=== PATIENT | female | born 1935 | race Caucasian/White ===

== ENCOUNTER → 2016-06-23 | Outpatient (CLI) | payer MEDICARE, BC ==
--- NOTE | 2016-06-23 13:39 | REP ---
LEFT HAND, FOUR VIEWS: HISTORY: Trauma. There is no acute fracture or dislocation. There is narrowing of the first carpometacarpal joint space. The remaining joint spaces are normal in appearance. IMPRESSION: There is no acute fracture or dislocation. Signed by Kong Alvarez MD 06/23/2016 01:41 P
== END ==
LOC: M WUC 12:06
PROVIDERS: ATTEND Family Medicine
DX: S69.92XA Unspecified injury of left wrist, hand and finger(s), initial encounter (principal); X58.XXXA Exposure to other specified factors, initial encounter; Y92.89 Other specified places as the place of occurrence of the external cause; Y93.89 Activity, other specified; Y99.8 Other external cause status

== ENCOUNTER → 2017-12-17 | Outpatient (REF) | payer MEDICARE, BC | LOC: M LAB REF 15:26 | DX: E83.52 Hypercalcemia (principal) ==

== ENCOUNTER → 2018-06-20 | Outpatient (REF) | payer MEDICARE, BC | LOC: M LAB REF 11:34 | PROVIDERS: ATTEND Family Medicine | DX: E83.52 Hypercalcemia (principal) ==

== ENCOUNTER → 2018-12-26 | Outpatient (CLI) | payer MEDICARE, BC ==
--- NOTE | 2018-12-26 15:18 | REP ---
WHOLE BODY RADIONUCLIDE BONE SCAN: HISTORY: Hypercalcemia. No comparison imaging. TECHNIQUE: 21.1 mCi of technetium 99m MDP is injected and standard whole body bone scan imaging was acquired. SCINTIGRAPHIC FINDINGS: There is a asymmetric osteoarthritic pattern of increased uptake in the acromioclavicular joints bilaterally. There are two linearly opposed foci of increased uptake in the right anterior rib cage involving rib numbers four and five consistent with fractures which are healing. There is mild osteoarthritic change in the medial compartment of each knee, left greater than right. 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 Some degenerative disc changes are noted in the thoracic spine. IMPRESSION: There is no evidence to suggest skeletal metastatic disease. Osteoarthritic changes. Healing anterior rib fractures on the right. Electronically Signed by Roger Clarke MD 12/26/2018 06:50 P
== END ==
LOC: M RAD 09:59
PROVIDERS: ATTEND Family Medicine
DX: S22.41XD Multiple fractures of ribs, right side, subsequent encounter for fracture with routine healing (principal); M51.34 Other intervertebral disc degeneration, thoracic region; M47.814 Spondylosis without myelopathy or radiculopathy, thoracic region; E83.52 Hypercalcemia
CPT/HCPCS: 78306; A9503

== ENCOUNTER → 2021-11-25 | Outpatient (REF) | payer MEDICARE, BC | LOC: M LAB REF 12:56 | PROVIDERS: ATTEND Family Medicine | DX: E83.52 Hypercalcemia (principal) ==

== ENCOUNTER → 2021-12-11 | Outpatient (CLI) | payer MEDICARE, BC | LOC: M WHC 09:20 | PROVIDERS: ATTEND Family Medicine | DX: R79.89 Other specified abnormal findings of blood chemistry (principal) ==

== ENCOUNTER → 2023-02-03 | Outpatient (REF) | payer MEDICARE, BC | LOC: M LAB REF 16:18 | PROVIDERS: ATTEND Family Medicine | DX: I50.9 Heart failure, unspecified (principal) ==

== ENCOUNTER 2023-04-11 21:42 | Emergency (ER) | payer MEDICARE, BC ==
[~2023-04-11] VITALS: Ht 147.3 cm; Wt 46.4 kg
[2023-04-11 21:53] VITALS: BP 133/63; TEMP 97.5; O2SAT 95
[2023-04-11] MEDS ORDERED: ASPI81CH33 PO (22:03)
[2023-04-11] MEDS ORDERED: NITR0.2D5 TD (22:05)
[2023-04-11] MEDS ORDERED: CARD40TA PO (22:09)
[2023-04-11] MEDS ORDERED: ROSU20TA61 PO (22:09)
[2023-04-11] MEDS ORDERED: SERT25TA85 PO (22:09)
[2023-04-11] MEDS ORDERED: POTA8CAP10 PO (22:09)
[2023-04-11] MEDS ORDERED: FURO20TA2 PO (22:09)
[2023-04-11] MEDS: BOOSTRIX VACCINE (TETANUS/DIPHTH/ACEL. PERTUSSIS) 0.5ML SYR IM.IMMUN ONE (23:29)
== END 2023-04-11 23:58 | disposition home or self-care (01) ==
LOC: EDBD 21:42 → M ED 21:42
DX: S01.01XA Laceration without foreign body of scalp, initial encounter (principal); W19.XXXA Unspecified fall, initial encounter; Y92.009 Unspecified place in unspecified non-institutional (private) residence as the place of occurrence of the external cause; Y93.89 Activity, other specified; Y99.9 Unspecified external cause status; Z23 Encounter for immunization; Z79.82 Long term (current) use of aspirin; Z79.899 Other long term (current) drug therapy

== ENCOUNTER 2023-06-03 18:36 | Inpatient (IN) | payer MEDICARE, BC ==
[~2023-06-03] VITALS: Ht 144.8 cm; Wt 46.2 kg
[~2023-06-03 18:36] MED LIST: ASPI81CH33 PO; CARD40TA PO; FURO20TA2 PO; NITR0.2D5 TOP; POTA8CAP10 PO; ROSU20TA61 PO; SERT25TA85 PO
[2023-06-03 20:03] LABS: VENOUS HCO3 24.2 MMOL/L (23.0-27.0); VENOUS O2 SATURATION 75.2 % (60.0-80.0); VENOUS PARTIAL PRESSURE CO2 41.9 mmHg (38.0-50.0); VENOUS PARTIAL PRESSURE O2 40.2 mmHg (30.0-50.0); VENOUS PH 7.379 UNITS (7.330-7.430); VENOUS STANDARD HCO3 23.1 MMOL/L; VENOUS TOTAL CO2 25.5 MMOL/L (24.0-28.0)
[2023-06-03 20:15] LABS: BASO % 0.2 % (0.0-1.0); HEMATOCRIT 41.9 % (36.0-47.0); HEMOGLOBIN 13.7 g/dl (12.0-15.5); LYMPH # 2.4 10^3/uL (1.5-5.0); LYMPH % 25.6 % (24.0-44.0); MEAN CORPUSCULAR HEMOGLOBIN 29.5 pg (27.0-33.0); MEAN CORPUSCULAR HGB CONC 32.7 g/dl (32.0-36.5); MEAN CORPUSCULAR VOLUME 90.1 fl (80.0-96.0); MONO % 10.8 % (2.0-8.0); NEUTROPHILS # 5.9 10^3/uL (1.5-8.5); NEUTROPHILS % 63.1 % (36.0-66.0); PLATELET COUNT, AUTOMATED 142 10^3/uL (150-450); RED BLOOD COUNT 4.65 10^6/uL (4.00-5.40); WHITE BLOOD COUNT 9.4 10^3/uL (4.0-10.0)
[2023-06-03 20:35] LABS: CK-MB VALUE MASS < 1.0 NG/ML (<3.6)
[2023-06-03 20:37] LABS: ALBUMIN 4.1 G/DL (3.2-5.2); ALKALINE PHOSPHATASE 125 U/L (46-116); ALT/SGPT 579 U/L (7.0-40); AST/SGOT 658 U/L (<34); BILIRUBIN,DIRECT 0.3 MG/DL (<0.4); BILIRUBIN,TOTAL 0.9 MG/DL (0.3-1.2); BLOOD UREA NITROGEN 15 MG/DL (9-23); CALCIUM LEVEL 9.4 MG/DL (8.3-10.6); CARBON DIOXIDE LEVEL 27 MMOL/L (20-31); CHLORIDE LEVEL 104 MMOL/L (98-107); CPK CREATINE PHOSPHOKINASE 86 U/L (34-145); CREATININE FOR GFR 0.83 MG/DL (0.55-1.30); GLOMERULAR FILTRATION RATE > 60.0 (>32); GLUCOSE, FASTING 86 MG/DL (74-106); MB/CK RELATIVE INDEX 1.16 (< OR =4); POTASSIUM SERUM 4.6 MMOL/L (3.5-5.1); SODIUM LEVEL 139 MMOL/L (136-145)
[2023-06-03] MEDS ORDERED: ISOVUE-370 76% 100ML VIAL As Ordered ONE (21:21)
[2023-06-03 21:50] LABS: CK-MB VALUE MASS < 1.0 NG/ML (<3.6)
[2023-06-03 21:54] LABS: CPK CREATINE PHOSPHOKINASE 79 U/L (34-145); MB/CK RELATIVE INDEX 1.26 (< OR =4)
[2023-06-03] MEDS: methylPREDNISolone 125MG 2ML VIAL IV ONE (22:57)
[2023-06-03] MEDS: IPRATROPIUM 0.5MG/ALBUTEROL 2.5MG INH SOL UD 3ML (DUONEB) NEB ONE (23:03)
[2023-06-04] MEDS ORDERED: MAALOX 30 ML SUSP *UDC PO PRN (01:45)
[2023-06-04] MEDS ORDERED: ACETAMINOPHEN TAB 650MG DOSE (2X325MG) PO PRN (01:45)
[2023-06-04] MEDS ORDERED: MOM 30ML SUSPENSION UDC PO PRN (01:45)
[2023-06-04] MEDS: IPRATROPIUM 0.5MG/ALBUTEROL 2.5MG INH SOL UD 3ML (DUONEB) NEB SCH (02:08)
[2023-06-04 03:23] LABS: MAGNESIUM LEVEL 1.7 MG/DL (1.8-2.4)
[2023-06-04 07:43] LABS: BASO % 0.2 % (0.0-1.0); HEMATOCRIT 37.9 % (36.0-47.0); HEMOGLOBIN 12.2 g/dl (12.0-15.5); LYMPH # 0.7 10^3/uL (1.5-5.0); LYMPH % 10.8 % (24.0-44.0); MEAN CORPUSCULAR HEMOGLOBIN 29.3 pg (27.0-33.0); MEAN CORPUSCULAR HGB CONC 32.2 g/dl (32.0-36.5); MEAN CORPUSCULAR VOLUME 91.1 fl (80.0-96.0); MONO # 0.1 10^3/uL (0.0-0.8); MONO % 1.8 % (2.0-8.0); NEUTROPHILS # 5.3 10^3/uL (1.5-8.5); NEUTROPHILS % 86.5 % (36.0-66.0); PLATELET COUNT, AUTOMATED 117 10^3/uL (150-450); RED BLOOD COUNT 4.16 10^6/uL (4.00-5.40); WHITE BLOOD COUNT 6.1 10^3/uL (4.0-10.0)
[2023-06-04] MEDS ORDERED: SYMBICORT 160/4.5MCG INHALER 6GM INH SCH (08:00)
[2023-06-04] MEDS ORDERED: AMIO200T49 PO (08:20)
[2023-06-04] MEDS ORDERED: ROSU10TA6 PO (08:20)
[2023-06-04] MEDS ORDERED: MULTTAB61 PO (08:20)
[2023-06-04] MEDS ORDERED: ASPI81TA26 PO (08:20)
[2023-06-04] MEDS ORDERED: FURO40TA2 PO (08:20)
[2023-06-04] MEDS ORDERED: PRES10CA2 PO (08:20)
[2023-06-04] MEDS ORDERED: POTA10CA60 PO (08:20)
[2023-06-04] MEDS ORDERED: HOME MED LIST COMPLETE! XX SCH (08:25)
[2023-06-04] MEDS: PANTOPRAZOLE 40MG VIAL IV SCH (08:36)
[2023-06-04] MEDS: methylPREDNISolone 125MG 2ML VIAL IV SCH (08:36)
[2023-06-04] MEDS: MAG SULF 1GM/100ML (MAG RUN) 1 GM in IV 1 EA IV ONE (08:36)
[2023-06-04 08:45] LABS: HEPATITIS B CORE ANTIBODY IGM NEGATIVE (NEGATIVE); HEPATITIS C VIRUS ABY INDEX < 0.02 INDEX (<0.8)
[2023-06-04] MEDS ORDERED: ENOXAPARIN 40MG/0.4ML SYRINGE (J1650 PER 10MG) SC SCH (09:00)
[2023-06-04 09:12] LABS: ALBUMIN 3.3 G/DL (3.2-5.2); ALKALINE PHOSPHATASE 107 U/L (46-116); ALT/SGPT 885 U/L (7.0-40); AST/SGOT 1034 U/L (<34); BILIRUBIN,DIRECT 0.3 MG/DL (<0.4); BILIRUBIN,TOTAL 0.7 MG/DL (0.3-1.2); BLOOD UREA NITROGEN 18 MG/DL (9-23); CARBON DIOXIDE LEVEL 24 MMOL/L (20-31); CHLORIDE LEVEL 107 MMOL/L (98-107); CREATININE FOR GFR 0.86 MG/DL (0.55-1.30); GLOMERULAR FILTRATION RATE > 60.0 (>32); GLUCOSE, FASTING 149 MG/DL (74-106); POTASSIUM SERUM 3.9 MMOL/L (3.5-5.1); SODIUM LEVEL 141 MMOL/L (136-145); TOTAL PROTEIN 5.9 G/DL (5.7-8.2)
[2023-06-04] MEDS: MAGNESIUM OXIDE 400MG TAB (MAG-OX) PO SCH (10:45)
[2023-06-04] MEDS: DOCUSATE SODIUM 100MG CAPSULE PO SCH (10:45)
[2023-06-04 11:22] LABS: INR 0.99; PROTHROMBIN TIME 12.8 SECONDS (12.5-14.5)
[2023-06-04] MEDS: ENOXAPARIN 30MG/0.3ML SYRINGE (J1650 PER 10MG) SC SCH (12:34)
[2023-06-04 13:35] LABS: THYROID STIMULATING HORMONE 2.067 uIU/ML (0.55-4.78)
[2023-06-04 16:10] VITALS: BP 126/84; TEMP 97.3; O2SAT 96
[2023-06-04 19:22] LABS: ALBUMIN 3.4 G/DL (3.2-5.2); BILIRUBIN,DIRECT 0.3 MG/DL (<0.4); BILIRUBIN,TOTAL 0.7 MG/DL (0.3-1.2); TOTAL PROTEIN 6.1 G/DL (5.7-8.2)
[2023-06-04] MEDS: ACETYLCYSTEINE IV ONE ×2 (20:22→21:26)
[2023-06-04] MEDS: D5W IV ONE ×2 (20:22→21:26)
[2023-06-04 21:11] VITALS: BP 121/55; TEMP 97.5; O2SAT 92
[2023-06-05 01:08] VITALS: O2SAT 92
[2023-06-05] MEDS: ACETYLCYSTEINE IV ONE (01:29)
[2023-06-05] MEDS: D5W IV ONE (01:29)
[2023-06-05] MEDS ORDERED: DEXTROMETHORPHAN 60MG/10ML SUSP 90ML BTL(DELSYM) PO PRN (05:20)
[2023-06-05 06:00] VITALS: BP 105/72; TEMP 97.5; O2SAT 94
[2023-06-05 06:25] LABS: HEMATOCRIT 36.9 % (36.0-47.0); HEMOGLOBIN 12.3 g/dl (12.0-15.5); MEAN CORPUSCULAR HEMOGLOBIN 29.6 pg (27.0-33.0); MEAN CORPUSCULAR HGB CONC 33.3 g/dl (32.0-36.5); MEAN CORPUSCULAR VOLUME 88.7 fl (80.0-96.0); PLATELET COUNT, AUTOMATED 128 10^3/uL (150-450); RED BLOOD COUNT 4.16 10^6/uL (4.00-5.40); WHITE BLOOD COUNT 14.8 10^3/uL (4.0-10.0)
[2023-06-05 06:55] LABS: PROCALCITONIN 0.14 ng/ml
[2023-06-05 06:58] LABS: ALBUMIN 2.9 G/DL (3.2-5.2); ALKALINE PHOSPHATASE 105 U/L (46-116); ALT/SGPT 792 U/L (7.0-40); AST/SGOT 575 U/L (<34); BILIRUBIN,TOTAL 0.8 MG/DL (0.3-1.2); BLOOD UREA NITROGEN 24 MG/DL (9-23); CALCIUM LEVEL 9.3 MG/DL (8.3-10.6); CARBON DIOXIDE LEVEL 23 MMOL/L (20-31); CHLORIDE LEVEL 100 MMOL/L (98-107); CREATININE FOR GFR 0.85 MG/DL (0.55-1.30); GLOMERULAR FILTRATION RATE > 60.0 (>32); GLUCOSE, FASTING 159 MG/DL (74-106); MAGNESIUM LEVEL 2.3 MG/DL (1.8-2.4); POTASSIUM SERUM 3.1 MMOL/L (3.5-5.1); SODIUM LEVEL 136 MMOL/L (136-145); TOTAL PROTEIN 5.8 G/DL (5.7-8.2)
[2023-06-05] MEDS: POTASSIUM CHLORIDE 10MEQ SR TABLET PO ONE (10:39)
[2023-06-05] MEDS: METOPROLOL SUCC *XL* 12.5MG PER 1/2 TAB (TopROL *XL*) PO SCH (10:40)
[2023-06-05 12:09] VITALS: O2SAT 95
[2023-06-05] MEDS ORDERED: ENTRESTO 24-26MG TABLET (SACUBITRIL/VALSARTAN) PO SCH (12:50)
[2023-06-05] MEDS: COLCHICINE 0.6 MG TABLET PO ONE (12:57)
[2023-06-05 13:11] LABS: URIC ACID 3.8 MG/DL (3.1-7.8)
[2023-06-05] MEDS: METOPROLOL SUCC *XL* 12.5MG PER 1/2 TAB (TopROL *XL*) PO ONE (13:41)
[2023-06-05 14:00] VITALS: BP_SYST 114; BP_SYST 118; BP_DIAS 72; TEMP 97.2; TEMP 97.5; O2SAT 92; O2SAT 95
[2023-06-05] MEDS: DIGOXIN INJ 0.5 MG/2 ML AMP IV STA (18:27)
[2023-06-05 20:24] VITALS: BP 115/73; TEMP 97.9; O2SAT 94
[2023-06-05] MEDS: DIGOXIN INJ 0.5 MG/2 ML AMP IV ONE (23:56)
[2023-06-06 02:21] VITALS: BP 120/75
[2023-06-06 05:55] VITALS: BP 130/78; TEMP 97.9; O2SAT 91
[2023-06-06 07:16] LABS: BASO % 0.1 % (0.0-1.0); EOS % 0.1 % (0.0-3.0); HEMATOCRIT 41.1 % (36.0-47.0); HEMOGLOBIN 13.8 g/dl (12.0-15.5); LYMPH # 1.3 10^3/uL (1.5-5.0); LYMPH % 9.9 % (24.0-44.0); MEAN CORPUSCULAR HEMOGLOBIN 29.7 pg (27.0-33.0); MEAN CORPUSCULAR HGB CONC 33.6 g/dl (32.0-36.5); MEAN CORPUSCULAR VOLUME 88.6 fl (80.0-96.0); MONO # 0.9 10^3/uL (0.0-0.8); MONO % 6.6 % (2.0-8.0); NEUTROPHILS # 11.2 10^3/uL (1.5-8.5); NEUTROPHILS % 82.9 % (36.0-66.0); PLATELET COUNT, AUTOMATED 183 10^3/uL (150-450); RED BLOOD COUNT 4.64 10^6/uL (4.00-5.40); WHITE BLOOD COUNT 13.5 10^3/uL (4.0-10.0)
[2023-06-06 07:54] LABS: ALKALINE PHOSPHATASE 111 U/L (46-116); ALT/SGPT 557 U/L (7.0-40); AST/SGOT 251 U/L (<34); BILIRUBIN,DIRECT 0.3 MG/DL (<0.4); BILIRUBIN,TOTAL 0.9 MG/DL (0.3-1.2); BLOOD UREA NITROGEN 16 MG/DL (9-23); CALCIUM LEVEL 9.1 MG/DL (8.3-10.6); CARBON DIOXIDE LEVEL 27 MMOL/L (20-31); CHLORIDE LEVEL 103 MMOL/L (98-107); CREATININE FOR GFR 0.73 MG/DL (0.55-1.30); GLOMERULAR FILTRATION RATE > 60.0 (>32); GLUCOSE, FASTING 85 MG/DL (74-106); POTASSIUM SERUM 3.9 MMOL/L (3.5-5.1); SODIUM LEVEL 138 MMOL/L (136-145); TOTAL PROTEIN 5.7 G/DL (5.7-8.2)
[2023-06-06 09:00] VITALS: O2SAT 92
[2023-06-06] MEDS ORDERED: METOPROLOL SUCC *XL* 25MG TAB (TopROL *XL*) PO SCH (09:00)
[2023-06-06] MEDS: COLCHICINE 0.6 MG TABLET PO ONE (09:35)
[2023-06-06] MEDS: METOPROLOL TART 25 MG TABLET PO SCH (09:38)
[2023-06-06 14:00] VITALS: BP 114/66; TEMP 97.7; O2SAT 92
[2023-06-06] MEDS: ENTRESTO 24-26MG TABLET (SACUBITRIL/VALSARTAN) PO SCH (14:55)
[2023-06-06 15:58] LABS: HEMOGLOBIN 13.6 g/dl (12.0-15.5); MEAN CORPUSCULAR HEMOGLOBIN 29.9 pg (27.0-33.0); MEAN CORPUSCULAR HGB CONC 33.2 g/dl (32.0-36.5); MEAN CORPUSCULAR VOLUME 90.1 fl (80.0-96.0); PLATELET COUNT, AUTOMATED 166 10^3/uL (150-450); RED BLOOD COUNT 4.55 10^6/uL (4.00-5.40); WHITE BLOOD COUNT 10.5 10^3/uL (4.0-10.0)
[2023-06-06 16:22] LABS: ALBUMIN 2.9 G/DL (3.2-5.2); ALKALINE PHOSPHATASE 111 U/L (46-116); ALT/SGPT 498 U/L (7.0-40); AST/SGOT 171 U/L (<34); BILIRUBIN,TOTAL 0.9 MG/DL (0.3-1.2); BLOOD UREA NITROGEN 15 MG/DL (9-23); CALCIUM LEVEL 8.7 MG/DL (8.3-10.6); CARBON DIOXIDE LEVEL 29 MMOL/L (20-31); CHLORIDE LEVEL 103 MMOL/L (98-107); GLOMERULAR FILTRATION RATE > 60.0 (>32); GLUCOSE, FASTING 112 MG/DL (74-106); POTASSIUM SERUM 3.8 MMOL/L (3.5-5.1); SODIUM LEVEL 137 MMOL/L (136-145); TOTAL PROTEIN 5.5 G/DL (5.7-8.2)
[2023-06-06 16:32] VITALS: BP 110/64
[2023-06-06 17:02] LABS: VENOUS BASE EXCESS 3.3 (-2.0-2.0); VENOUS HCO3 27.7 MMOL/L (23.0-27.0); VENOUS O2 SATURATION 93.8 % (60.0-80.0); VENOUS PARTIAL PRESSURE CO2 41.1 mmHg (38.0-50.0); VENOUS PH 7.446 UNITS (7.330-7.430); VENOUS STANDARD HCO3 27.3 MMOL/L; VENOUS TOTAL CO2 28.9 MMOL/L (24.0-28.0)
[2023-06-06 18:26] LABS: PROCALCITONIN 0.14 ng/ml
[2023-06-06 20:30] VITALS: BP 107/62; TEMP 97.9; O2SAT 90
[2023-06-07 04:50] VITALS: BP 115/70; TEMP 98.8; O2SAT 90
[2023-06-07 06:32] LABS: BASO % 0.1 % (0.0-1.0); HEMATOCRIT 42.8 % (36.0-47.0); HEMOGLOBIN 13.9 g/dl (12.0-15.5); LYMPH # 1.4 10^3/uL (1.5-5.0); LYMPH % 11.8 % (24.0-44.0); MEAN CORPUSCULAR HGB CONC 32.5 g/dl (32.0-36.5); MEAN CORPUSCULAR VOLUME 89.2 fl (80.0-96.0); MONO # 0.9 10^3/uL (0.0-0.8); NEUTROPHILS # 9.3 10^3/uL (1.5-8.5); NEUTROPHILS % 79.6 % (36.0-66.0); PLATELET COUNT, AUTOMATED 190 10^3/uL (150-450); WHITE BLOOD COUNT 11.7 10^3/uL (4.0-10.0)
[2023-06-07 06:55] LABS: ALBUMIN 2.7 G/DL (3.2-5.2); ALKALINE PHOSPHATASE 106 U/L (46-116); ALT/SGPT 405 U/L (7.0-40); AST/SGOT 104 U/L (<34); BILIRUBIN,DIRECT 0.4 MG/DL (<0.4); BILIRUBIN,TOTAL 1.1 MG/DL (0.3-1.2); BLOOD UREA NITROGEN 16 MG/DL (9-23); CALCIUM LEVEL 8.7 MG/DL (8.3-10.6); CARBON DIOXIDE LEVEL 29 MMOL/L (20-31); CHLORIDE LEVEL 105 MMOL/L (98-107); CREATININE FOR GFR 0.79 MG/DL (0.55-1.30); GLOMERULAR FILTRATION RATE > 60.0 (>32); GLUCOSE, FASTING 111 MG/DL (74-106); POTASSIUM SERUM 3.9 MMOL/L (3.5-5.1); SODIUM LEVEL 140 MMOL/L (136-145); TOTAL PROTEIN 5.5 G/DL (5.7-8.2)
[2023-06-07] MEDS ORDERED: DIGOXIN 0.125 MG TAB PO SCH (09:00)
[2023-06-07] MEDS ORDERED: METOPROLOL TART 25 MG TABLET PO SCH (09:00)
[2023-06-07 09:13] LABS: PROCALCITONIN 0.15 ng/ml
[2023-06-07] MEDS: LIDOCAINE 5% (LIDODERM) PATCH TD ONE (09:57)
[2023-06-07] MEDS: DIGOXIN INJ 0.5 MG/2 ML AMP IV SCH (09:57)
[2023-06-07] MEDS ORDERED: CEFEPIME HCL 2 GM in D5W MINI-BAG PLUS 50 ML IV SCH (10:15)
[2023-06-07] MEDS ORDERED: VANCOMYCIN HCL 680 MG in IV FLUID PLACE HOLDER 1 EA IV SCH (11:40)
[2023-06-07] MEDS ORDERED: dexAMETHasone 20MG/5ML VIAL IV SCH (11:40)
[2023-06-07] MEDS: NS 1,000 ML IV SCH (12:27)
[2023-06-07] MEDS: PANTOPRAZOLE 40MG VIAL IV SCH (12:27)
[2023-06-07] MEDS: dexAMETHasone 20MG/5ML VIAL IV SCH (12:50)
[2023-06-07] MEDS: cefTRIAXone SOD 2 GM in D5W MINI-BAG PLUS 50 ML IV SCH (13:04)
[2023-06-07 13:21] LABS: MAGNESIUM LEVEL 2.2 MG/DL (1.8-2.4)
[2023-06-07] MEDS ORDERED: ACYCLOVIR IV SCH ×2 (15:00)
[2023-06-07] MEDS ORDERED: D5W MINI IV SCH (15:00)
[2023-06-07] MEDS ORDERED: D5W IV SCH (15:00)
[2023-06-07 15:23] LABS: COLOR, CSF COLORLESS (COLORLESS); CSF TUBE# CELL CNT TUBE 1
[2023-06-07 15:24] LABS: APPEARANCE, CSF CLEAR (CLEAR)
[2023-06-07 15:26] LABS: APPEARANCE, CSF CLEAR (CLEAR); COLOR, CSF COLORLESS (COLORLESS); CSF TUBE# CELL CNT TUBE 4
[2023-06-07 15:40] LABS: CSF TUBE# TP TUBE 2; TOTAL PROTEIN,CSF 158.2 MG/DL (15-45)
[2023-06-07 15:43] LABS: CSF TUBE# GLU TUBE 2
[2023-06-07] MEDS: VANCOMYCIN HCL 1,000 MG, VIAL MATE ADAPTER 1 EACH in D5W 250 ML IV ONE (15:54)
[2023-06-07] MEDS: D5W IV SCH (16:57)
[2023-06-07] MEDS: ACYCLOVIR IV SCH (16:57)
[2023-06-07 20:00] VITALS: BP 116/60; TEMP 97.9; O2SAT 89
[2023-06-07 22:19] VITALS: O2SAT 90
[2023-06-08] VITALS (16 sets, daily range): BP systolic 111–154; BP diastolic 60–89; TEMP 97.1–98.1; O2SAT 88–96
[2023-06-08 06:41] LABS: BASO % 0.1 % (0.0-1.0); HEMATOCRIT 41.3 % (36.0-47.0); HEMOGLOBIN 13.2 g/dl (12.0-15.5); LYMPH # 0.7 10^3/uL (1.5-5.0); MEAN CORPUSCULAR VOLUME 90.8 fl (80.0-96.0); MONO # 0.8 10^3/uL (0.0-0.8); MONO % 6.1 % (2.0-8.0); NEUTROPHILS # 11.8 10^3/uL (1.5-8.5); NEUTROPHILS % 88.2 % (36.0-66.0); PLATELET COUNT, AUTOMATED 174 10^3/uL (150-450); RED BLOOD COUNT 4.55 10^6/uL (4.00-5.40); WHITE BLOOD COUNT 13.4 10^3/uL (4.0-10.0)
[2023-06-08 06:52] LABS: ALBUMIN 2.3 G/DL (3.2-5.2); ALKALINE PHOSPHATASE 95 U/L (46-116); ALT/SGPT 272 U/L (7.0-40); AST/SGOT 49 U/L (<34); BILIRUBIN,DIRECT 0.4 MG/DL (<0.4); BILIRUBIN,TOTAL 0.8 MG/DL (0.3-1.2); BLOOD UREA NITROGEN 20 MG/DL (9-23); CALCIUM LEVEL 8.3 MG/DL (8.3-10.6); CARBON DIOXIDE LEVEL 27 MMOL/L (20-31); CHLORIDE LEVEL 108 MMOL/L (98-107); CREATININE FOR GFR 0.78 MG/DL (0.55-1.30); GLOMERULAR FILTRATION RATE > 60.0 (>32); GLUCOSE, FASTING 112 MG/DL (74-106); POTASSIUM SERUM 3.9 MMOL/L (3.5-5.1); SODIUM LEVEL 143 MMOL/L (136-145); TOTAL PROTEIN 5.3 G/DL (5.7-8.2)
[2023-06-08] MEDS ORDERED: VANCOMYCIN HCL 750 MG, VIAL MATE ADAPTER 1 EACH in D5W 250 ML IV SCH (09:00)
[2023-06-08] MEDS: CEFEPIME HCL 2 GM in D5W MINI-BAG PLUS 50 ML IV SCH (09:36)
[2023-06-08] MEDS: metroNIDAZOLE 500 MG in IV 1 EA IV SCH (10:27)
[2023-06-08] MEDS: FUROSEMIDE 20MG/2ML VIAL IV ONE (11:16)
[2023-06-08] MEDS: SODIUM CHLORIDE HYPERTONIC 3% 4ML NEB SOL INH SCH (12:34)
[2023-06-08] MEDS: IPRATROPIUM 0.5MG/ALBUTEROL 2.5MG INH SOL UD 3ML (DUONEB) NEB SCH (12:34)
[2023-06-08] MEDS ORDERED: GLUCOSE 4GM CHEW TABLET PO PRN (13:30)
[2023-06-08] MEDS ORDERED: GLUCAGON INJ 1MG VIAL SC PRN (13:30)
[2023-06-08] MEDS ORDERED: DEXTROSE 50% 50ML SYRINGE IV PRN (13:30)
[2023-06-08] MEDS: ENOXAPARIN 30MG/0.3ML SYRINGE (J1650 PER 10MG) SC SCH (22:29)
[2023-06-09] VITALS (27 sets, daily range): BP systolic 112–153; BP diastolic 61–75; TEMP 97.3–97.7; O2SAT 94–100
[2023-06-09 05:51] LABS: BASO % 0.2 % (0.0-1.0); EOS % 0.2 % (0.0-3.0); HEMATOCRIT 41.8 % (36.0-47.0); HEMOGLOBIN 13.5 g/dl (12.0-15.5); LYMPH # 0.6 10^3/uL (1.5-5.0); LYMPH % 3.3 % (24.0-44.0); MEAN CORPUSCULAR HEMOGLOBIN 29.5 pg (27.0-33.0); MEAN CORPUSCULAR HGB CONC 32.3 g/dl (32.0-36.5); MEAN CORPUSCULAR VOLUME 91.5 fl (80.0-96.0); MONO # 1.3 10^3/uL (0.0-0.8); NEUTROPHILS # 16.6 10^3/uL (1.5-8.5); NEUTROPHILS % 88.4 % (36.0-66.0); PLATELET COUNT, AUTOMATED 214 10^3/uL (150-450); RED BLOOD COUNT 4.57 10^6/uL (4.00-5.40); WHITE BLOOD COUNT 18.8 10^3/uL (4.0-10.0)
[2023-06-09 06:13] LABS: ERYTHROCYTE SEDIMENTATION RATE 81 mm/hr (0-30)
[2023-06-09 06:19] LABS: PROCALCITONIN 0.76 ng/ml
[2023-06-09 06:45] LABS: ALBUMIN 2.6 G/DL (3.2-5.2); ALKALINE PHOSPHATASE 101 U/L (46-116); ALT/SGPT 202 U/L (7.0-40); AST/SGOT 38 U/L (<34); BILIRUBIN,DIRECT 0.4 MG/DL (<0.4); BLOOD UREA NITROGEN 21 MG/DL (9-23); CALCIUM LEVEL 9.2 MG/DL (8.3-10.6); CARBON DIOXIDE LEVEL 27 MMOL/L (20-31); CHLORIDE LEVEL 108 MMOL/L (98-107); CREATININE FOR GFR 0.82 MG/DL (0.55-1.30); GLOMERULAR FILTRATION RATE > 60.0 (>32); GLUCOSE, FASTING 114 MG/DL (74-106); POTASSIUM SERUM 3.2 MMOL/L (3.5-5.1); SODIUM LEVEL 145 MMOL/L (136-145); TOTAL PROTEIN 5.8 G/DL (5.7-8.2)
[2023-06-09] MEDS: KCL 10MEQ/100ML SWI (KRUN) 10 MEQ in IV 1 EA IV SCH ×2 (09:00→14:40)
[2023-06-09] MEDS ORDERED: E-Z-PAQUE 96% w/w SUSP 176GM BTL As Ordered ONE (14:30)
[2023-06-09] MEDS ORDERED: VARIBAR PUDDING 40% w/v 230ML TUBE As Ordered ONE (14:30)
[2023-06-09] MEDS ORDERED: BARIUM SULFATE 700 MG TABLET (E-Z-DISK) As Ordered ONE (14:30)
[2023-06-09] MEDS ORDERED: VARIBAR NECTAR 40% w/v 240ML SUSP BTL As Ordered ONE (14:30)
[2023-06-09] MEDS ORDERED: SODIUM CHLORIDE 0.9% INJ 10 ML SYR IV PRN (15:30)
[2023-06-09] MEDS: SODIUM CHLORIDE 0.9% INJ 10 ML SYR IV SCH (16:06)
[2023-06-09] MEDS: POTASSIUM CHLORIDE 10MEQ SR TABLET PO SCH (16:07)
[2023-06-09] MEDS: METOPROLOL TART 25 MG TABLET PO SCH (21:00)
[2023-06-09] MEDS: ROSUVASTATIN 10 MG TAB (CRESTOR) PO SCH (21:16)
[2023-06-10] VITALS (23 sets, daily range): BP systolic 110–142; BP diastolic 65–76; TEMP 96.6–97.5; O2SAT 95–100
[2023-06-10 05:48] LABS: BASO % 0.2 % (0.0-1.0); HEMATOCRIT 38.3 % (36.0-47.0); HEMOGLOBIN 12.4 g/dl (12.0-15.5); LYMPH # 0.9 10^3/uL (1.5-5.0); LYMPH % 5.9 % (24.0-44.0); MEAN CORPUSCULAR HGB CONC 32.4 g/dl (32.0-36.5); MEAN CORPUSCULAR VOLUME 89.5 fl (80.0-96.0); MONO # 1.2 10^3/uL (0.0-0.8); NEUTROPHILS # 12.6 10^3/uL (1.5-8.5); NEUTROPHILS % 82.7 % (36.0-66.0); PLATELET COUNT, AUTOMATED 266 10^3/uL (150-450); RED BLOOD COUNT 4.28 10^6/uL (4.00-5.40); WHITE BLOOD COUNT 15.2 10^3/uL (4.0-10.0)
[2023-06-10 06:13] LABS: BLOOD UREA NITROGEN 26 MG/DL (9-23); CALCIUM LEVEL 8.6 MG/DL (8.3-10.6); CARBON DIOXIDE LEVEL 24 MMOL/L (20-31); CHLORIDE LEVEL 113 MMOL/L (98-107); CREATININE FOR GFR 0.71 MG/DL (0.55-1.30); GLOMERULAR FILTRATION RATE > 60.0 (>32); GLUCOSE, FASTING 104 MG/DL (74-106); POTASSIUM SERUM 4.1 MMOL/L (3.5-5.1); SODIUM LEVEL 146 MMOL/L (136-145)
[2023-06-10] MEDS: DIGOXIN 0.125 MG TAB PO SCH (08:49)
[2023-06-10] MEDS: ASPIRIN 81MG ENTERIC TABLET PO SCH (08:50)
[2023-06-10] MEDS: ENTRESTO 24-26MG TABLET (SACUBITRIL/VALSARTAN) PO SCH (10:33)
[2023-06-10] MEDS: MIRALAX *UNIT DOSE* 17GM PACKET PO SCH (11:41)
[2023-06-11] VITALS (23 sets, daily range): BP systolic 114–141; BP diastolic 55–84; TEMP 96.5–98.5; O2SAT 85–100
[2023-06-11 06:46] LABS: BASO % 0.4 % (0.0-1.0); EOS % 0.1 % (0.0-3.0); HEMATOCRIT 41.5 % (36.0-47.0); HEMOGLOBIN 13.3 g/dl (12.0-15.5); LYMPH # 1.1 10^3/uL (1.5-5.0); LYMPH % 9.6 % (24.0-44.0); MEAN CORPUSCULAR VOLUME 90.6 fl (80.0-96.0); MONO # 0.8 10^3/uL (0.0-0.8); MONO % 7.3 % (2.0-8.0); NEUTROPHILS # 8.8 10^3/uL (1.5-8.5); NEUTROPHILS % 77.7 % (36.0-66.0); PLATELET COUNT, AUTOMATED 282 10^3/uL (150-450); RED BLOOD COUNT 4.58 10^6/uL (4.00-5.40); WHITE BLOOD COUNT 11.3 10^3/uL (4.0-10.0)
[2023-06-11 07:09] LABS: BLOOD UREA NITROGEN 22 MG/DL (9-23); CALCIUM LEVEL 9.2 MG/DL (8.3-10.6); CARBON DIOXIDE LEVEL 26 MMOL/L (20-31); CHLORIDE LEVEL 113 MMOL/L (98-107); CREATININE FOR GFR 0.74 MG/DL (0.55-1.30); GLOMERULAR FILTRATION RATE > 60.0 (>32); GLUCOSE, FASTING 88 MG/DL (74-106); POTASSIUM SERUM 4.7 MMOL/L (3.5-5.1); SODIUM LEVEL 147 MMOL/L (136-145)
[2023-06-11 08:19] LABS: ERYTHROCYTE SEDIMENTATION RATE 72 mm/hr (0-30)
[2023-06-11] MEDS: D5W 1,000 ML IV SCH (09:59)
[2023-06-11] MEDS: SPIRONOLACTONE 25 MG TAB PO SCH (10:01)
[2023-06-11 10:33] LABS: PROCALCITONIN 0.51 ng/ml
[2023-06-11] MEDS: LevoFLOXacin 750 MG TABLET PO SCH (13:08)
[2023-06-12] VITALS (18 sets, daily range): BP systolic 105–125; BP diastolic 55–83; TEMP 96.8–98.5; O2SAT 94–100
[2023-06-12 07:19] LABS: BASO % 0.3 % (0.0-1.0); EOS % 0.4 % (0.0-3.0); HEMATOCRIT 39.7 % (36.0-47.0); HEMOGLOBIN 12.7 g/dl (12.0-15.5); LYMPH # 1.1 10^3/uL (1.5-5.0); LYMPH % 9.7 % (24.0-44.0); MEAN CORPUSCULAR HEMOGLOBIN 28.9 pg (27.0-33.0); MEAN CORPUSCULAR VOLUME 90.2 fl (80.0-96.0); MONO # 0.8 10^3/uL (0.0-0.8); MONO % 7.5 % (2.0-8.0); NEUTROPHILS # 8.7 10^3/uL (1.5-8.5); NEUTROPHILS % 78.2 % (36.0-66.0); PLATELET COUNT, AUTOMATED 255 10^3/uL (150-450); WHITE BLOOD COUNT 11.1 10^3/uL (4.0-10.0)
[2023-06-12 07:36] LABS: BLOOD UREA NITROGEN 23 MG/DL (9-23); CARBON DIOXIDE LEVEL 27 MMOL/L (20-31); CHLORIDE LEVEL 110 MMOL/L (98-107); CREATININE FOR GFR 0.79 MG/DL (0.55-1.30); GLOMERULAR FILTRATION RATE > 60.0 (>32); GLUCOSE, FASTING 104 MG/DL (74-106); POTASSIUM SERUM 4.4 MMOL/L (3.5-5.1); SODIUM LEVEL 144 MMOL/L (136-145)
[2023-06-12] MEDS: METOPROLOL SUCC (TopROL XL) 50MG **XL** TAB PO SCH (08:23)
[2023-06-12 14:42] LABS: ALBUMIN 2.1 G/DL (3.2-5.2); ALKALINE PHOSPHATASE 83 U/L (46-116); ALT/SGPT 95 U/L (7.0-40); AST/SGOT 28 U/L (<34); BILIRUBIN,DIRECT 0.3 MG/DL (<0.4); BILIRUBIN,TOTAL 0.7 MG/DL (0.3-1.2); TOTAL PROTEIN 5.1 G/DL (5.7-8.2)
[2023-06-12 14:48] LABS: VENOUS BASE EXCESS -2.7 (-2.0-2.0); VENOUS HCO3 21.8 MMOL/L (23.0-27.0); VENOUS PARTIAL PRESSURE O2 151.4 mmHg (30.0-50.0); VENOUS PH 7.388 UNITS (7.330-7.430); VENOUS STANDARD HCO3 22.3 MMOL/L; VENOUS TOTAL CO2 22.9 MMOL/L (24.0-28.0)
[2023-06-13 03:36] VITALS: BP 102/55; TEMP 97; O2SAT 95
[2023-06-13 05:38] LABS: BASO % 0.3 % (0.0-1.0); EOS # 0.1 10^3/uL (0.0-0.5); EOS % 0.8 % (0.0-3.0); HEMATOCRIT 40.7 % (36.0-47.0); HEMOGLOBIN 13.3 g/dl (12.0-15.5); MEAN CORPUSCULAR HEMOGLOBIN 29.5 pg (27.0-33.0); MEAN CORPUSCULAR HGB CONC 32.7 g/dl (32.0-36.5); MEAN CORPUSCULAR VOLUME 90.2 fl (80.0-96.0); MONO # 0.6 10^3/uL (0.0-0.8); MONO % 4.9 % (2.0-8.0); NEUTROPHILS # 9.5 10^3/uL (1.5-8.5); NEUTROPHILS % 81.5 % (36.0-66.0); PLATELET COUNT, AUTOMATED 239 10^3/uL (150-450); RED BLOOD COUNT 4.51 10^6/uL (4.00-5.40); WHITE BLOOD COUNT 11.6 10^3/uL (4.0-10.0)
[2023-06-13 05:50] LABS: ERYTHROCYTE SEDIMENTATION RATE 53 mm/hr (0-30)
[2023-06-13 06:08] LABS: BLOOD UREA NITROGEN 24 MG/DL (9-23); CALCIUM LEVEL 8.7 MG/DL (8.3-10.6); CARBON DIOXIDE LEVEL 24 MMOL/L (20-31); CHLORIDE LEVEL 112 MMOL/L (98-107); CREATININE FOR GFR 0.83 MG/DL (0.55-1.30); GLOMERULAR FILTRATION RATE > 60.0 (>32); GLUCOSE, FASTING 95 MG/DL (74-106); POTASSIUM SERUM 4.3 MMOL/L (3.5-5.1); SODIUM LEVEL 144 MMOL/L (136-145)
[2023-06-13 06:55] LABS: PROCALCITONIN 0.27 ng/ml
[2023-06-13 07:42] VITALS: BP 117/60; TEMP 96.9; O2SAT 96
[2023-06-13] MEDS: ACETAMINOPHEN TAB 650MG DOSE (2X325MG) PO PRN (13:25)
[2023-06-13 14:40] VITALS: BP 98/53; TEMP 97.7; O2SAT 91
[2023-06-13 20:00] VITALS: BP 103/56; TEMP 97.3; O2SAT 93
[2023-06-13 21:12] VITALS: BP 101/56; TEMP 97.9; O2SAT 95
[2023-06-14 06:00] VITALS: BP 118/72; TEMP 97.7; O2SAT 94
[2023-06-14 07:04] LABS: BASO % 0.1 % (0.0-1.0); EOS # 0.1 10^3/uL (0.0-0.5); EOS % 0.9 % (0.0-3.0); HEMOGLOBIN 12.8 g/dl (12.0-15.5); LYMPH # 1.5 10^3/uL (1.5-5.0); LYMPH % 10.7 % (24.0-44.0); MEAN CORPUSCULAR HEMOGLOBIN 29.2 pg (27.0-33.0); MEAN CORPUSCULAR HGB CONC 32.8 g/dl (32.0-36.5); MEAN CORPUSCULAR VOLUME 88.8 fl (80.0-96.0); MONO # 0.6 10^3/uL (0.0-0.8); MONO % 4.3 % (2.0-8.0); NEUTROPHILS # 11.6 10^3/uL (1.5-8.5); NEUTROPHILS % 81.4 % (36.0-66.0); PLATELET COUNT, AUTOMATED 252 10^3/uL (150-450); RED BLOOD COUNT 4.39 10^6/uL (4.00-5.40); WHITE BLOOD COUNT 14.3 10^3/uL (4.0-10.0)
[2023-06-14 07:31] LABS: BLOOD UREA NITROGEN 21 MG/DL (9-23); CALCIUM LEVEL 8.5 MG/DL (8.3-10.6); CARBON DIOXIDE LEVEL 27 MMOL/L (20-31); CHLORIDE LEVEL 111 MMOL/L (98-107); CREATININE FOR GFR 0.78 MG/DL (0.55-1.30); GLOMERULAR FILTRATION RATE > 60.0 (>32); GLUCOSE, FASTING 79 MG/DL (74-106); POTASSIUM SERUM 4.2 MMOL/L (3.5-5.1); SODIUM LEVEL 142 MMOL/L (136-145)
[2023-06-14 14:00] VITALS: BP 105/62; TEMP 97.9; O2SAT 94
[2023-06-14 20:35] VITALS: BP 112/64; TEMP 97.7; O2SAT 95
[2023-06-15 05:34] VITALS: BP 115/62; TEMP 97.2; O2SAT 96
[2023-06-15 12:17] LABS: BASO % 0.2 % (0.0-1.0); EOS # 0.1 10^3/uL (0.0-0.5); EOS % 0.9 % (0.0-3.0); HEMATOCRIT 38.5 % (36.0-47.0); HEMOGLOBIN 12.7 g/dl (12.0-15.5); LYMPH # 1.5 10^3/uL (1.5-5.0); LYMPH % 12.1 % (24.0-44.0); MEAN CORPUSCULAR HEMOGLOBIN 29.3 pg (27.0-33.0); MEAN CORPUSCULAR VOLUME 88.7 fl (80.0-96.0); MONO # 0.7 10^3/uL (0.0-0.8); MONO % 5.6 % (2.0-8.0); NEUTROPHILS # 9.8 10^3/uL (1.5-8.5); NEUTROPHILS % 79.3 % (36.0-66.0); PLATELET COUNT, AUTOMATED 231 10^3/uL (150-450); RED BLOOD COUNT 4.34 10^6/uL (4.00-5.40); WHITE BLOOD COUNT 12.4 10^3/uL (4.0-10.0)
[2023-06-15 12:37] LABS: C REACTIVE PROTEIN QUANTITATIV 1.9 MG/DL (<1.0)
[2023-06-15 13:15] LABS: PROCALCITONIN 0.15 ng/ml
[2023-06-15 14:00] VITALS: BP 118/56; TEMP 97.9; O2SAT 94
[2023-06-15 20:33] VITALS: BP 131/78; TEMP 97.9; O2SAT 94
[2023-06-15] MEDS: ALBUTEROL SULFATE 2.5MG/0.5ML INH NEB SOLN NEB PRN (21:51)
[2023-06-16 05:15] VITALS: BP 116/59; TEMP 97.7; O2SAT 92
[2023-06-16 05:49] LABS: HEMATOCRIT 35.2 % (36.0-47.0); HEMOGLOBIN 11.5 g/dl (12.0-15.5); MEAN CORPUSCULAR HEMOGLOBIN 29.1 pg (27.0-33.0); MEAN CORPUSCULAR HGB CONC 32.7 g/dl (32.0-36.5); MEAN CORPUSCULAR VOLUME 89.1 fl (80.0-96.0); PLATELET COUNT, AUTOMATED 225 10^3/uL (150-450); RED BLOOD COUNT 3.95 10^6/uL (4.00-5.40); WHITE BLOOD COUNT 10.7 10^3/uL (4.0-10.0)
[2023-06-16 06:17] LABS: BLOOD UREA NITROGEN 13 MG/DL (9-23); CALCIUM LEVEL 8.5 MG/DL (8.3-10.6); CARBON DIOXIDE LEVEL 27 MMOL/L (20-31); CHLORIDE LEVEL 109 MMOL/L (98-107); CREATININE FOR GFR 0.77 MG/DL (0.55-1.30); GLOMERULAR FILTRATION RATE > 60.0 (>32); GLUCOSE, FASTING 82 MG/DL (74-106); POTASSIUM SERUM 3.9 MMOL/L (3.5-5.1); SODIUM LEVEL 142 MMOL/L (136-145)
[2023-06-16 09:36] VITALS: BP 115/57
[2023-06-16] MEDS ORDERED: ALDA25TA2 PO (10:41)
[2023-06-16] MEDS ORDERED: ENTR1TAB PO (10:41)
[2023-06-16] MEDS ORDERED: DIGO0.123 PO (10:41)
[2023-06-16] MEDS ORDERED: METO1TAB7 PO (10:41)
[2023-06-16] MEDS: NEOSPORIN OINT 0.9 GM PKT TOP ONE (11:21)
== END 2023-06-16 12:55 | DRG 189 ==
LOC: EDBD 18:36 → M ED 18:36 → M ED INP 06-04 01:41 → ENRESERV 06-04 14:29 → M MSPAV 06-04 16:07 → M PCU 06-08 11:49 → M MSPAV 06-13 14:21
PROVIDERS: ADMIT Family Medicine; ATTEND Student in an Organized Health Care Education/Training Program
DX: J96.01 Acute respiratory failure with hypoxia (principal); G93.41 Metabolic encephalopathy; J69.0 Pneumonitis due to inhalation of food and vomit; J18.9 Pneumonia, unspecified organism; I69.351 Hemiplegia and hemiparesis following cerebral infarction affecting right dominant side; I50.22 Chronic systolic (congestive) heart failure; E87.0 Hyperosmolality and hypernatremia; I48.92 Unspecified atrial flutter; K71.10 Toxic liver disease with hepatic necrosis, without coma; B34.8 Other viral infections of unspecified site; E78.5 Hyperlipidemia, unspecified; I25.10 Atherosclerotic heart disease of native coronary artery without angina pectoris; I48.0 Paroxysmal atrial fibrillation; E87.6 Hypokalemia; M10.9 Gout, unspecified; Z95.2 Presence of prosthetic heart valve; Z88.0 Allergy status to penicillin; Z79.899 Other long term (current) drug therapy; Z79.82 Long term (current) use of aspirin; K76.0 Fatty (change of) liver, not elsewhere classified; I25.2 Old myocardial infarction; M81.0 Age-related osteoporosis without current pathological fracture; Z98.49 Cataract extraction status, unspecified eye; K40.90 Unilateral inguinal hernia, without obstruction or gangrene, not specified as recurrent; Z66 Do not resuscitate; D72.829 Elevated white blood cell count, unspecified

== ENCOUNTER → 2023-06-18 | Outpatient (REF) ==
[~2023-06-18] MED LIST changes: +ALDA25TA2 PO; +AMIO200T49 PO; +ASPI81TA26 PO; +DIGO0.123 PO; +ENTR1TAB PO; +FURO40TA2 PO; +METO1TAB7 PO; +MULTTAB61 PO; +POTA10CA60 PO; +PRES10CA2 PO; +ROSU10TA6 PO
[2023-06-18 07:49] LABS: HEMATOCRIT 36.3 % (36.0-47.0); HEMOGLOBIN 12.1 g/dl (12.0-15.5); MEAN CORPUSCULAR HEMOGLOBIN 29.5 pg (27.0-33.0); MEAN CORPUSCULAR HGB CONC 33.3 g/dl (32.0-36.5); MEAN CORPUSCULAR VOLUME 88.5 fl (80.0-96.0); PLATELET COUNT, AUTOMATED 243 10^3/uL (150-450); WHITE BLOOD COUNT 10.9 10^3/uL (4.0-10.0)
[2023-06-18 08:07] LABS: BLOOD UREA NITROGEN 9 MG/DL (9-23); CALCIUM LEVEL 8.8 MG/DL (8.3-10.6); CARBON DIOXIDE LEVEL 27 MMOL/L (20-31); CHLORIDE LEVEL 106 MMOL/L (98-107); CHOLESTEROL LEVEL 132 MG/DL (<200); CREATININE FOR GFR 0.78 MG/DL (0.55-1.30); GLOMERULAR FILTRATION RATE > 60.0 (>32); GLUCOSE, FASTING 73 MG/DL (74-106); HDL CHOLESTEROL 31.4 MG/DL (>40); NON-HDL-C 100.6 MG/DL; SODIUM LEVEL 141 MMOL/L (136-145); TRIGLYCERIDES LEVEL 153 MG/DL (<150)
== END ==
PROVIDERS: ATTEND Physician Assistant
DX: I48.91 Unspecified atrial fibrillation (principal)

== ENCOUNTER → 2023-06-23 | Outpatient (REF) | PROVIDERS: ATTEND Physician Assistant | DX: I48.91 Unspecified atrial fibrillation (principal); Z79.899 Other long term (current) drug therapy ==

== ENCOUNTER → 2023-06-30 | Outpatient (REF) ==
[~2023-06-30] MED LIST changes: -POTA10CA60 PO; +POTA10CA70 PO; -ROSU10TA6 PO; +ROSU10TA61 PO
[2023-06-30 10:44] LABS: HEMATOCRIT 41.4 % (36.0-47.0); HEMOGLOBIN 13.2 g/dl (12.0-15.5); MEAN CORPUSCULAR HEMOGLOBIN 29.2 pg (27.0-33.0); MEAN CORPUSCULAR HGB CONC 31.9 g/dl (32.0-36.5); MEAN CORPUSCULAR VOLUME 91.6 fl (80.0-96.0); PLATELET COUNT, AUTOMATED 231 10^3/uL (150-450); RED BLOOD COUNT 4.52 10^6/uL (4.00-5.40); WHITE BLOOD COUNT 6.3 10^3/uL (4.0-10.0)
[2023-06-30 11:11] LABS: CALCIUM LEVEL 9.8 MG/DL (8.3-10.6); CREATININE FOR GFR 0.98 MG/DL (0.55-1.30); GLOMERULAR FILTRATION RATE 56.9 (>32); POTASSIUM SERUM 4.5 MMOL/L (3.5-5.1)
[2023-06-30 11:22] LABS: DIGOXIN LEVEL 2.8 NG/ML (0.8-2.0)
== END ==
PROVIDERS: ATTEND Physician Assistant
DX: I48.91 Unspecified atrial fibrillation (principal)

== ENCOUNTER → 2023-07-05 | Outpatient (REF) | PROVIDERS: ATTEND Physician Assistant | DX: I48.91 Unspecified atrial fibrillation (principal) ==

== ENCOUNTER → 2023-07-07 | Outpatient (REF) | LOC: M PLAIMG 12:33 | PROVIDERS: ATTEND Internal Medicine | DX: Z00.00 Encounter for general adult medical examination without abnormal findings (principal) ==

== ENCOUNTER → 2023-07-08 | Outpatient (REF) | PROVIDERS: ATTEND Physician Assistant | DX: I48.91 Unspecified atrial fibrillation (principal) ==

== ENCOUNTER → 2023-07-13 | Outpatient (REF) | PROVIDERS: ATTEND Physician Assistant | DX: I48.91 Unspecified atrial fibrillation (principal) ==

== ENCOUNTER → 2023-07-14 | Outpatient (REF) | PROVIDERS: ATTEND Physician Assistant | DX: I48.91 Unspecified atrial fibrillation (principal) ==

== ENCOUNTER → 2023-07-26 | Outpatient (REF) | PROVIDERS: ATTEND Internal Medicine | DX: I48.91 Unspecified atrial fibrillation (principal) ==

== ENCOUNTER → 2023-08-02 | Outpatient (REF) ==
[~2023-08-02] MED LIST changes: +DIGO62.5 PO; +DOCU100C16 PO; +SPIR-10 PO
[2023-08-02 12:33] LABS: HEMATOCRIT 39.2 % (36.0-47.0); HEMOGLOBIN 12.8 g/dl (12.0-15.5); MEAN CORPUSCULAR HEMOGLOBIN 29.8 pg (27.0-33.0); MEAN CORPUSCULAR HGB CONC 32.7 g/dl (32.0-36.5); MEAN CORPUSCULAR VOLUME 91.4 fl (80.0-96.0); PLATELET COUNT, AUTOMATED 262 10^3/uL (150-450); RED BLOOD COUNT 4.29 10^6/uL (4.00-5.40); WHITE BLOOD COUNT 7.8 10^3/uL (4.0-10.0)
[2023-08-02 13:02] LABS: DIGOXIN LEVEL 1.5 NG/ML (0.8-2.0)
[2023-08-02 13:03] LABS: CREATININE FOR GFR 0.97 MG/DL (0.55-1.30); GLOMERULAR FILTRATION RATE 57.6 (>32); POTASSIUM SERUM 4.9 MMOL/L (3.5-5.1)
== END ==
PROVIDERS: ATTEND Physician Assistant
DX: I48.91 Unspecified atrial fibrillation (principal)

== ENCOUNTER 2023-08-09 11:58 | Inpatient (IN) | payer MEDICARE, BC ==
[~2023-08-09] VITALS: Ht 141 cm; Wt 44.0 kg
[~2023-08-09 11:58] MED LIST changes: -DIGO62.5 PO; -DOCU100C16 PO; -SPIR-10 PO
[2023-08-09 12:55] LABS: HEMATOCRIT 43.5 % (36.0-47.0); HEMOGLOBIN 14.4 g/dl (12.0-15.5); MEAN CORPUSCULAR HEMOGLOBIN 30.3 pg (27.0-33.0); MEAN CORPUSCULAR HGB CONC 33.1 g/dl (32.0-36.5); MEAN CORPUSCULAR VOLUME 91.4 fl (80.0-96.0); PLATELET COUNT, AUTOMATED 289 10^3/uL (150-450); RED BLOOD COUNT 4.76 10^6/uL (4.00-5.40); WHITE BLOOD COUNT 12.5 10^3/uL (4.0-10.0)
[2023-08-09 13:27] LABS: VENOUS HCO3 25.7 MMOL/L (23.0-27.0); VENOUS O2 SATURATION 75.4 % (60.0-80.0); VENOUS PARTIAL PRESSURE CO2 50.2 mmHg (38.0-50.0); VENOUS PARTIAL PRESSURE O2 40.8 mmHg (30.0-50.0); VENOUS PH 7.327 UNITS (7.330-7.430); VENOUS STANDARD HCO3 23.1 MMOL/L; VENOUS TOTAL CO2 27.2 MMOL/L (24.0-28.0)
[2023-08-09 13:46] LABS: BASO % 0.3 % (0.0-1.0); EOS # 0.1 10^3/uL (0.0-0.5); EOS % 0.8 % (0.0-3.0); HEMATOCRIT 43.1 % (36.0-47.0); HEMOGLOBIN 13.9 g/dl (12.0-15.5); LYMPH # 1.8 10^3/uL (1.5-5.0); LYMPH % 15.2 % (24.0-44.0); MEAN CORPUSCULAR HEMOGLOBIN 29.6 pg (27.0-33.0); MEAN CORPUSCULAR HGB CONC 32.3 g/dl (32.0-36.5); MEAN CORPUSCULAR VOLUME 91.7 fl (80.0-96.0); MONO # 0.9 10^3/uL (0.0-0.8); MONO % 7.8 % (2.0-8.0); NEUTROPHILS % 75.6 % (36.0-66.0); PLATELET COUNT, AUTOMATED 273 10^3/uL (150-450)
[2023-08-09 14:02] LABS: DIGOXIN LEVEL 1.6 NG/ML (0.8-2.0)
[2023-08-09 14:06] LABS: THYROID STIMULATING HORMONE 6.171 uIU/ML (0.55-4.78)
[2023-08-09 14:07] LABS: ALBUMIN 3.5 G/DL (3.2-5.2); BILIRUBIN,DIRECT 0.2 MG/DL (<0.4); BILIRUBIN,TOTAL 0.6 MG/DL (0.3-1.2); CALCIUM LEVEL 9.9 MG/DL (8.3-10.6); CREATININE FOR GFR 1.21 MG/DL (0.55-1.30); GLOMERULAR FILTRATION RATE 44.6 (>32); POTASSIUM SERUM 5.2 MMOL/L (3.5-5.1); TOTAL PROTEIN 6.7 G/DL (5.7-8.2)
[2023-08-09] MEDS ORDERED: METO1TAB7 PO (14:34)
[2023-08-09] MEDS ORDERED: SPIR-10 PO (14:34)
[2023-08-09] MEDS ORDERED: DOCU100C16 PO (14:34)
[2023-08-09] MEDS ORDERED: ENTR1TAB PO (14:34)
[2023-08-09] MEDS ORDERED: DIGO62.5 PO (14:34)
[2023-08-09] MEDS ORDERED: HOME MED LIST COMPLETE! XX SCH (14:35)
[2023-08-09] MEDS: NS 1,000 ML IV ONE (14:42)
[2023-08-09] MEDS: NS 1,000 ML IV SCH (16:21)
[2023-08-09 21:20] VITALS: BP 108/73; TEMP 97.3; O2SAT 97
[2023-08-09] MEDS: DOCUSATE SODIUM 100MG CAPSULE PO SCH (22:06)
[2023-08-09] MEDS: cefTRIAXone SOD 1 GM in D5W MINI-BAG PLUS 50 ML IV SCH (22:06)
[2023-08-10 03:59] VITALS: BP 110/66; TEMP 97.5; O2SAT 96
[2023-08-10] MEDS: LEVOTHYROXINE 12.5MCG PER 1/2 TAB (0.0125MG) PO SCH (06:00)
[2023-08-10 06:54] LABS: BASO % 0.4 % (0.0-1.0); EOS # 0.1 10^3/uL (0.0-0.5); EOS % 0.8 % (0.0-3.0); HEMATOCRIT 44.8 % (36.0-47.0); LYMPH % 19.7 % (24.0-44.0); MEAN CORPUSCULAR HEMOGLOBIN 29.7 pg (27.0-33.0); MEAN CORPUSCULAR HGB CONC 31.3 g/dl (32.0-36.5); MEAN CORPUSCULAR VOLUME 95.1 fl (80.0-96.0); MONO # 0.7 10^3/uL (0.0-0.8); NEUTROPHILS # 7.4 10^3/uL (1.5-8.5); NEUTROPHILS % 71.8 % (36.0-66.0); PLATELET COUNT, AUTOMATED 243 10^3/uL (150-450); RED BLOOD COUNT 4.71 10^6/uL (4.00-5.40); WHITE BLOOD COUNT 10.3 10^3/uL (4.0-10.0)
[2023-08-10 08:13] LABS: FREE T4 1.04 NG/DL (0.89-1.76)
[2023-08-10 08:23] LABS: ALBUMIN 3.1 G/DL (3.2-5.2); CALCIUM LEVEL 9.4 MG/DL (8.3-10.6); CREATININE FOR GFR 0.97 MG/DL (0.55-1.30); GLOMERULAR FILTRATION RATE 57.6 (>32); MAGNESIUM LEVEL 2.3 MG/DL (1.8-2.4); PHOSPHORUS LEVEL 2.9 MG/DL (2.4-5.1); POTASSIUM SERUM 4.6 MMOL/L (3.5-5.1)
[2023-08-10] MEDS: ENTRESTO 24-26MG TABLET (SACUBITRIL/VALSARTAN) PO SCH (09:00)
[2023-08-10] MEDS: METOPROLOL SUCC (TopROL XL) 50MG **XL** TAB PO SCH (09:00)
[2023-08-10] MEDS: DIGOXIN 0.0625MG PER 1/2TABLET PO SCH (09:00)
[2023-08-10] MEDS: ENOXAPARIN 30MG/0.3ML SYRINGE (J1650 PER 10MG) SC SCH (09:08)
[2023-08-10] MEDS: ACETAMINOPHEN TAB 650MG DOSE (2X325MG) PO PRN (09:08)
[2023-08-10] MEDS ORDERED: D5W 1000ML IV ONE (10:55)
[2023-08-10] MEDS ORDERED: HOME MED LIST COMPLETE! XX SCH (12:00)
[2023-08-10] MEDS: SPIRONOLACTONE 25 MG TAB PO SCH (13:14)
[2023-08-10] MEDS: D5W 1,000 ML IV SCH (13:14)
[2023-08-10] MEDS: ASPIRIN 81MG ENTERIC TABLET PO SCH (13:14)
[2023-08-10 13:43] VITALS: BP 133/71; TEMP 97.9; O2SAT 93
[2023-08-10 20:01] VITALS: BP 108/48; TEMP 97.5; O2SAT 97
[2023-08-10] MEDS: ROSUVASTATIN 10 MG TAB (CRESTOR) PO SCH (20:49)
[2023-08-11 04:17] VITALS: BP 110/55; TEMP 97.5; O2SAT 95
[2023-08-11 07:00] LABS: BASO % 0.2 % (0.0-1.0); EOS # 0.2 10^3/uL (0.0-0.5); EOS % 1.8 % (0.0-3.0); LYMPH # 1.5 10^3/uL (1.5-5.0); LYMPH % 16.3 % (24.0-44.0); MEAN CORPUSCULAR HEMOGLOBIN 30.1 pg (27.0-33.0); MEAN CORPUSCULAR HGB CONC 33.1 g/dl (32.0-36.5); MEAN CORPUSCULAR VOLUME 90.9 fl (80.0-96.0); MONO # 0.9 10^3/uL (0.0-0.8); MONO % 9.7 % (2.0-8.0); NEUTROPHILS # 6.4 10^3/uL (1.5-8.5); NEUTROPHILS % 71.7 % (36.0-66.0); PLATELET COUNT, AUTOMATED 229 10^3/uL (150-450); RED BLOOD COUNT 3.96 10^6/uL (4.00-5.40); WHITE BLOOD COUNT 8.9 10^3/uL (4.0-10.0)
[2023-08-11 07:02] LABS: HEMOGLOBIN 11.9 g/dl (12.0-15.5)
[2023-08-11 07:33] LABS: ALBUMIN 2.8 G/DL (3.2-5.2); BLOOD UREA NITROGEN 27 MG/DL (9-23); CALCIUM LEVEL 9.2 MG/DL (8.3-10.6); CARBON DIOXIDE LEVEL 24 MMOL/L (20-31); CHLORIDE LEVEL 110 MMOL/L (98-107); CREATININE FOR GFR 0.86 MG/DL (0.55-1.30); GLOMERULAR FILTRATION RATE > 60.0 (>32); GLUCOSE, FASTING 88 MG/DL (74-106); MAGNESIUM LEVEL 1.9 MG/DL (1.8-2.4); PHOSPHORUS LEVEL 1.8 MG/DL (2.4-5.1); POTASSIUM SERUM 3.9 MMOL/L (3.5-5.1); SODIUM LEVEL 141 MMOL/L (136-145)
[2023-08-11 09:30] VITALS: BP 104/55
[2023-08-11 12:05] VITALS: BP 101/59; TEMP 97.5; O2SAT 95
[2023-08-11] MEDS: LR 1,000 ML IV SCH (12:07)
[2023-08-11 20:12] VITALS: BP 111/56; TEMP 97.7; O2SAT 93
[2023-08-11] MEDS: CEFDINIR 300 MG CAP (OMNICEF) PO SCH (20:38)
[2023-08-12 04:11] VITALS: BP 93/42; TEMP 97.3; O2SAT 98
[2023-08-12 05:44] LABS: BASO % 0.4 % (0.0-1.0); EOS # 0.1 10^3/uL (0.0-0.5); EOS % 1.1 % (0.0-3.0); HEMOGLOBIN 10.7 g/dl (12.0-15.5); LYMPH # 1.8 10^3/uL (1.5-5.0); MEAN CORPUSCULAR HEMOGLOBIN 29.7 pg (27.0-33.0); MEAN CORPUSCULAR HGB CONC 32.4 g/dl (32.0-36.5); MEAN CORPUSCULAR VOLUME 91.7 fl (80.0-96.0); MONO # 0.8 10^3/uL (0.0-0.8); MONO % 8.3 % (2.0-8.0); NEUTROPHILS # 6.3 10^3/uL (1.5-8.5); PLATELET COUNT, AUTOMATED 207 10^3/uL (150-450)
[2023-08-12 06:04] LABS: ALBUMIN 2.5 G/DL (3.2-5.2); BLOOD UREA NITROGEN 17 MG/DL (9-23); CALCIUM LEVEL 8.8 MG/DL (8.3-10.6); CARBON DIOXIDE LEVEL 26 MMOL/L (20-31); CHLORIDE LEVEL 110 MMOL/L (98-107); CREATININE FOR GFR 0.87 MG/DL (0.55-1.30); GLOMERULAR FILTRATION RATE > 60.0 (>32); GLUCOSE, FASTING 87 MG/DL (74-106); MAGNESIUM LEVEL 1.6 MG/DL (1.8-2.4); PHOSPHORUS LEVEL 1.9 MG/DL (2.4-5.1); SODIUM LEVEL 142 MMOL/L (136-145)
[2023-08-12 08:37] VITALS: BP 107/52
[2023-08-12] MEDS: MAGNESIUM OXIDE 400MG TAB (MAG-OX) PO ONE (08:40)
[2023-08-12] MEDS: MAG SULF 1GM/100ML (MAG RUN) 1 GM in IV 1 EA IV SCH (08:41)
[2023-08-12 13:10] VITALS: BP 104/55; TEMP 97.5; O2SAT 98
[2023-08-12 20:58] VITALS: BP 91/47; TEMP 97.5; O2SAT 98
[2023-08-12] MEDS: MUPIROCIN 2% OINT 22 GM TUBE TOP SCH (21:00)
[2023-08-13 04:43] VITALS: BP 93/48; TEMP 97.7; O2SAT 97
[2023-08-13 05:45] LABS: BASO % 0.3 % (0.0-1.0); EOS # 0.1 10^3/uL (0.0-0.5); EOS % 1.7 % (0.0-3.0); HEMATOCRIT 33.2 % (36.0-47.0); HEMOGLOBIN 11.1 g/dl (12.0-15.5); LYMPH # 1.6 10^3/uL (1.5-5.0); LYMPH % 21.4 % (24.0-44.0); MEAN CORPUSCULAR HEMOGLOBIN 30.5 pg (27.0-33.0); MEAN CORPUSCULAR HGB CONC 33.4 g/dl (32.0-36.5); MEAN CORPUSCULAR VOLUME 91.2 fl (80.0-96.0); MONO # 0.6 10^3/uL (0.0-0.8); MONO % 8.4 % (2.0-8.0); NEUTROPHILS # 5.1 10^3/uL (1.5-8.5); NEUTROPHILS % 67.9 % (36.0-66.0); PLATELET COUNT, AUTOMATED 205 10^3/uL (150-450); RED BLOOD COUNT 3.64 10^6/uL (4.00-5.40); WHITE BLOOD COUNT 7.5 10^3/uL (4.0-10.0)
[2023-08-13 06:16] LABS: ALBUMIN 2.3 G/DL (3.2-5.2); CALCIUM LEVEL 8.6 MG/DL (8.3-10.6); CREATININE FOR GFR 0.94 MG/DL (0.55-1.30); GLOMERULAR FILTRATION RATE 59.7 (>32); MAGNESIUM LEVEL 2.3 MG/DL (1.8-2.4); PHOSPHORUS LEVEL 2.3 MG/DL (2.4-5.1)
[2023-08-13 08:28] VITALS: BP 93/48
[2023-08-13] MEDS ORDERED: MUPI2OI TOP (12:56)
[2023-08-13] MEDS ORDERED: LEVO25TA5 PO (12:56)
[2023-08-13] MEDS ORDERED: CEFD300CAP PO (12:56)
[2023-08-14] MEDS ORDERED: MUPI30CR TOP (15:15)
[2023-08-14] MEDS ORDERED: LEVO25TA5 PO (15:15)
[2023-08-14] MEDS ORDERED: CEFD1CAP9 PO (15:15)
== END 2023-08-13 16:00 | disposition home health service (06) | DRG 690 ==
LOC: EDBD 11:58 → M ED 11:58 → M ED INP 18:11 → M MS5PR 21:22 → EEVIPCON 08-10 13:41 → OBSVTOIN 08-10 13:41
PROVIDERS: ADMIT Internal Medicine; ATTEND Internal Medicine
DX: N39.0 Urinary tract infection, site not specified (principal); E46 Unspecified protein-calorie malnutrition; I50.22 Chronic systolic (congestive) heart failure; I69.351 Hemiplegia and hemiparesis following cerebral infarction affecting right dominant side; E87.0 Hyperosmolality and hypernatremia; I48.92 Unspecified atrial flutter; B96.20 Unspecified Escherichia coli [E. coli] as the cause of diseases classified elsewhere; I25.10 Atherosclerotic heart disease of native coronary artery without angina pectoris; I25.2 Old myocardial infarction; I48.0 Paroxysmal atrial fibrillation; M81.0 Age-related osteoporosis without current pathological fracture; Z95.2 Presence of prosthetic heart valve; Z98.49 Cataract extraction status, unspecified eye; E86.0 Dehydration; E03.9 Hypothyroidism, unspecified; Z88.0 Allergy status to penicillin; Z79.899 Other long term (current) drug therapy; Z79.82 Long term (current) use of aspirin

== ENCOUNTER → 2023-10-26 | Outpatient (REF) | payer MEDICARE, BC ==
[~2023-10-26] MED LIST changes: +CEFD1CAP9 PO; +CEFD300CAP PO; +DIGO62.5 PO; +DOCU100C16 PO; +LEVO25TA5 PO; +MUPI2OI TOP; +MUPI30CR TOP; +SPIR-10 PO
== END ==
LOC: M LAB REF 11:52
PROVIDERS: ATTEND Family Medicine
DX: I50.22 Chronic systolic (congestive) heart failure (principal)

== ENCOUNTER → 2024-03-07 | Outpatient (REF) | payer MEDICARE, BC ==
[~2024-03-07] MED LIST changes: -ROSU20TA61 PO; +ROSU20TA86 PO
== END ==
LOC: M LAB REF 12:16
PROVIDERS: ATTEND Family Medicine
DX: I11.0 Hypertensive heart disease with heart failure (principal); I50.22 Chronic systolic (congestive) heart failure; I48.91 Unspecified atrial fibrillation